=== PATIENT | female | born 1935 | race Caucasian/White ===

== ENCOUNTER 2017-10-16 11:33 | Emergency (ER) | payer MEDICARE, BC ==
[~2017-10-16] VITALS: Ht 157.5 cm; Wt 86.0 kg
[2017-10-16 11:36] VITALS: BP 175/79; PULSE 63; RESP 16; TEMP 97.6; O2SAT 96
[2017-10-16] MEDS ORDERED: ZOCO40TA PO (11:46)
[2017-10-16] MEDS ORDERED: FISHCAP4 PO (11:46)
[2017-10-16] MEDS ORDERED: METF1000 PO (11:46)
[2017-10-16] MEDS ORDERED: KLOR10TA PO (11:46)
[2017-10-16] MEDS ORDERED: FURO40TA PO (11:46)
[2017-10-16] MEDS ORDERED: ASPI-516 CHEW (11:46)
[2017-10-16] MEDS ORDERED: CYANOCOBALAMIN SL (11:46)
[2017-10-16] MEDS ORDERED: LISI-519 PO (11:46)
[2017-10-16] MEDS ORDERED: LEVO100T5 PO (11:46)
[2017-10-16] MEDS ORDERED: ACYC800T PO (12:09)
[2017-10-16] MEDS ORDERED: NORC5TAB PO (12:09)
[2017-10-16] MEDS ORDERED: MEDR4PAK PO (12:09)
--- NOTE | 2017-10-16 12:09 | PD ---
HPI Chief Complaint: Skin Problem Time Seen by Provider: 11:43 Travel History International Travel<30 days: No Contact w/Intl Traveler<30days: No Traveled to known affect area: No History of Present Illness HPI 82-year-old female here with a painful rash to her left flank region 2 days. Reports the rash as constant burning and painful. No fever chills. Symptom severity is moderate. No aggravating or alleviating factors. PFSH Past Medical History Diabetes: Yes Patient Takes Glucophage: Yes Thyroid Disease: Yes Social History Alcohol Use: No Tobacco Use: No Substance Use: No Allergies-Medications (Allergen,Severity, Reaction): Coded Allergies: Penicillins (Verified Allergy, Unknown, 10/16/17) Reported Meds & Prescriptions Reported Meds & Active Scripts Active Watson (Hydrocodone-Acetaminophen) 5 Mg-325 Mg Tab 1 Tab PO Q6H PRN Medrol Dosepak (Methylprednisolone) 4 Mg Dspk 4 Mg PO DIRECTED Per Pharmacist direction Acyclovir 800 Mg Tab 800 Mg PO 5 TIMES A DAY 10 Days Reported [Vitamib B12] 5,000 Mcg SL DAILY Fish Oil + D3 (Fish Oil-Cholecalciferol) 1,200-1,000 Mg-Unit Cap 1 Cap PO DAILY Aspirin 81 Mg Chew 81 Mg CHEW DAILY Lisinopril 5 Mg Tab 5 Mg PO DAILY Zocor (Simvastatin) 40 Mg Tab 40 Mg PO DAILY Klor-Con 10 (Potassium Chloride) 10 Meq Tab 20 Meq PO DAILY Furosemide 40 Mg Tab 40 Mg PO PRN Levothyroxine (Levothyroxine Sodium) 100 Mcg Tab 100 Mcg PO DAILY Metformin (Metformin HCl) 1,000 Mg Tab 1,000 Mg PO DAILY With a meal Review of Systems Except as stated in HPI: all other systems reviewed are Neg General / Constitutional: No: Fever Skin: Positive Rash Physical Exam Narrative GENERAL: Alert and well-appearing 82-year-old female SKIN: Warm and dry. Erythematous/vesicular rash following a single dermatome distribution to the left flank region. HEAD: Normocephalic. EYES: No scleral icterus. No injection or drainage. NECK: Supple CARDIOVASCULAR: Regular rate and rhythm without murmurs, gallops, or rubs. RESPIRATORY: Breath sounds equal bilaterally. No accessory muscle use. GASTROINTESTINAL: Abdomen soft, non-tender, nondistended. MUSCULOSKELETAL: No cyanosis, or edema. BACK: Nontender without obvious deformity. No CVA tenderness. Data Data Last Documented VS Vital Signs Date Time Temp Pulse Resp B/P (MAP) Pulse Ox O2 Delivery O2 Flow Rate FiO2 10/16/17 11:36 97.6 63 16 175/79 (111) 96 MDM Medical Decision Making Medical Screen Exam Complete: Yes Emergency Medical Condition: Yes Differential Diagnosis Herpes zoster, contact dermatitis, other Narrative Course 82 year old female with rash consistent with herpes zoster. she is well appearing. Diagnosis Primary Impression: Herpes zoster Qualified Codes: B02.9 - Zoster without complications Referrals: Primary Care Physician Scripts Hydrocodone-Acetaminophen (Watson) 5 Mg-325 Mg Tab 1 TAB PO Q6H Y for PAIN, #15 TAB 0 Refills Prov: Kaylah Spaulding 10/16/17 Methylprednisolone Dosepak (Medrol Dosepak) 4 Mg Dspk 4 MG PO DIRECTED, #1 DSPK 0 Refills Per Pharmacist direction Prov: Kaylah Spaulding 10/16/17 Acyclovir (Acyclovir) 800 Mg Tab 800 MG PO 5 TIMES A DAY for Mgmt Viral Infection for 10 Days, TAB 0 Refills Prov: Kaylah Spaulding 10/16/17 Disposition: 01 DISCHARGE HOME Condition: Stable Kaylah Spaulding October 16, 2017 12:09
[2017-10-22] MEDS ORDERED: [UNRECOGNIZED DRUG - CODE] SL (10:44)
== END 2017-10-16 12:17 | disposition home or self-care (01) ==
LOC: PHEFT 11:33
DX: B02.9 Zoster without complications (principal); E11.9 Type 2 diabetes mellitus without complications; Z79.84 Long term (current) use of oral hypoglycemic drugs
CPT/HCPCS: 99283